=== PATIENT | male | born 1940 | race Caucasian/White ===

== ENCOUNTER 2016-10-08 06:18 | Inpatient (IN) ==
[2016-10-08] MEDS ORDERED: CARDIZEM IV ONE (06:37)
[2016-10-08] MEDS ORDERED: ASPIRIN PO STA (06:38)
[2016-10-08] MEDS ORDERED: CARDIZEM ONE (06:39)
[2016-10-08 06:50] LABS: MANUAL DIFF NEEDED? NO
[2016-10-08 06:56] LABS: BASO% 0.5 % (0.0-0.8); EOS# 0.16 X1000 (0.0-0.7); HEMATOCRIT 43.7 % (42.0-52.0); HEMOGLOBIN 15.4 g/dL (14.0-18.0); IMM GRAN# 0.07 X1000 (0.0-0.04); IMM GRAN% 0.9 % (0.0-0.5); LYMPH# 1.75 X1000 (1.2-3.4); LYMPH% 21.4 % (20.5-51.1); MCH 31.3 PG (27-31); MCHC 35.2 g/dL (33-37); MCV 88.8 FL (81-99); MONO# 0.35 X1000 (0.11-0.59); MONO% 4.3 % (1.7-9.3); MPV 10.1 FL (7.4-10.4); NEUT% 70.9 % (42.2-75.2); PLT 184 X1000 (130-400); RBC 4.92 XMIL (4.7-6.1)
[2016-10-08 07:18] LABS: INR 1.03; PROTIME 10.5 Seconds (9.2-11.7)
[2016-10-08 07:21] LABS: AGAP 16; ALKALINE PHOSPHATASE 59 U/L (32-122); BUN 21 mg/dL (8-22); CALCIUM 9.6 mg/dL (8.8-10.2); CHLORIDE 104 mmol/L (98-107); COSMO 289; GOT 19 U/L (10-34); GPT 18 U/L (10-44); POTASSIUM 3.8 mmol/L (3.5-5.1); SODIUM 142 mmol/L (136-145); TCO2 22 mmol/L (25-35); TOTAL BILIRUBIN 0.67 mg/dL (0.20-1.00); TOTAL PROTEIN 7.1 g/dL (6.3-8.3)
[2016-10-08] MEDS: CARDIZEM 100 MG/NS 100 ML IV SCH ×3 (07:21→18:08)
[2016-10-08 07:24] LABS: CK PROFILE 218 U/L (24-204)
[2016-10-08 07:50] LABS: CK INDEX 2.5 (0.0-2.5); CK-MB 5.51 ng/mL (0.0-5.0)
--- NOTE | 2016-10-08 08:33 | Diag Imaging Result Document ---
PROCEDURE NAME: HEAD/C-SPINE W/O CONTRAST - 10/08/2016 CT HEAD WITHOUT CONTRAST: A dose-reduction protocol was used. COMPARISON: No comparison exam. FINDINGS: There is no evidence of intracranial hemorrhage, mass effect, midline shift, or hydrocephalus. There is no evidence of infarct, although acute infarcts may not be immediately visible. There is no skull fracture. There is paranasal sinus disease noted on the left and the left maxillary sinus is noted to be smaller than the right. IMPRESSION: 1. No evidence of intracranial injury. 2. Paranasal sinus disease noted on the left. CT CERVICAL SPINE WITHOUT CONTRAST: Axial and reformatted sagittal and coronal images are obtained. A dose-reduction protocol was used. COMPARISON: No comparison exam. FINDINGS: The bones appear osteopenic. There are substantial degenerative changes at the atlantoaxial articulation. There is substantial multilevel degenerative disk and degenerative facet disease. There are ligamentum flavum calcifications noted at T1. There is no fracture identified. There is no subluxation seen. There is no precervical soft tissue swelling. There are atherosclerotic calcifications noted at the bilateral carotid bulb regions. IMPRESSION: 1. Apparent osteopenia. Substantial multilevel degenerative disease. 2. No evidence of fracture or subluxation.
[2016-10-08] MEDS ORDERED: NS 500 ML ONE (09:25)
[2016-10-08] MEDS ORDERED: NS 500 ML IV ONE (09:30)
--- NOTE | 2016-10-08 09:38 | ED EKG INTERP ---
EKG Interpretation - EKG Time of EKG reading by physician:: 06:29 EKG Read and Signed by:: Becca Haywood EKG Interpretation (*Must complete 3 of following elements*): Abnormal Rate: 135 Rhythm: atrial flutter with 2:1 AV conduction Attestation - Scribe Verification/Attestation Scribe:: Felicity Tovar Acting as Scribe for:: Becca Haywood Scribe documention review:: This chart was documented by a scribe and accurately reflects the service the provider performed and the decisions made by the provider.
--- NOTE | 2016-10-08 09:39 | Diag Imaging Result Document ---
PROCEDURE NAME: ANGIOGRAM/PULMONARY ARTERIES - 10/08/2016 CT ANGIOGRAM OF PULMONARY ARTERIES WITH CONTRAST: Exam performed with intravenous contrast. Axial and reformatted coronal images are obtained. A dose-reduction protocol was used. COMPARISON: No comparison exam. FINDINGS: There are no filling defects identified in the pulmonary arteries. There is no indication of aortic dissection. The ascending aorta is mildly ectatic up to 4 cm. The descending aorta is borderline ectatic up to 3 cm. There is mild dependent atelectasis. There is no consolidation, pleural effusion, or pneumothorax identified. IMPRESSION: 1. No evidence of pulmonary embolism. 2. Mild ectasia of the thoracic aorta. No evidence of aortic dissection. 3. No pneumonia. 4. No pneumothorax.
--- NOTE | 2016-10-08 09:41 | PROVIDER DOCUMENTATION ---
HPI-Syncope/Dizziness - General Chief Complaint: Syncope Stated Complaint: syncope Time Seen by Provider: 10/08/16 06:37 Source: patient Allergies/Adverse Reactions: Patient Allergies Allergy/AdvReac Type Severity Reaction Status Date / Time No Known Allergies Allergy Verified 10/08/16 06:37 Home Medications: Home Medication List Medication Instructions Recorded Confirmed Last Taken Type Doxycycline 100 mg PO BID 10/08/16 10/08/16 10/07/16 19:00 History Tamsulosin HCl 0.4 mg PO DAILY 10/08/16 10/08/16 10/07/16 07:00 History - History of Present Illness-Syncope/Dizzy Nature of Presenting Problem: Pt is a 76 yom who came to the ED with a cc of a syncopal episode this morning. Pt reports he was in the kitchen when he started feeling light headed, his heart was racing, and he got a headache, then he fell and hit the top of his head. Pt reports he was feeling fatigue before and after the syncopal episode. Pt reports he at his PCP for sinusitis and he was given a CT and MRI. Onset/Duration: reports: this morning Timing: reports: still present Position/Activity at time of episode: reports: standing Symptoms prior to episode: reports: headache, lightheaded, racing heart Context: reports: collapsed, felt faint Loss of Consciousness: no loss of consciousness Location of injury. (If syncope resulted in an injury.): reports: head (right side of the scalp) Current Symptoms: reports: lightheaded Recently Seen Here or By Another Healthcare Provider: No - Dizziness Severity in ED: reports: mild Dizziness Related Current/Associated Symptoms: reports: dizzy, headache, lightheaded, syncope Review of Systems - Adult - REVIEW OF SYSTEMS - ADULT Constitutional: denies: chills, fever Eyes: reports: no symptoms reported Ears, Nose, Mouth & Throat: reports: no symptoms reported Cardiovascular: denies: chest pain, heart murmur Respiratory: denies: cough, pleurisy Gastrointestinal: reports: no symptoms reported Genitourinary: reports: no symptoms reported Musculoskeletal: reports: no symptoms reported Integumentary: reports: no symptoms reported Neurological: reports: dizziness/vertigo, syncope. denies: loss of balance, paresthesia Psychiatric: reports: no symptoms reported Endocrine: reports: no symptoms reported Hematologic/Lymphatic: reports: no symptoms reported Allergic/Immunologic: reports: no symptoms reported All Other Systems: Reviewed and Negative Past History - Adult - PAST MEDICAL HISTORY-ADULT Review of Records: reports: Old Records Reviewed, Nursing Assessment Review Major Childhood Illnesses: reports: denies history Cardiovascular: reports: denies history Respiratory: reports: denies history Gastrointestinal: reports: denies history Obstetrical/Gynecological: reports: denies history Genitourinary: reports: denies history Musculoskeletal: reports: denies history Neurological: reports: denies history Endocrine/Immune: reports: denies history Other Conditions: reports: denies history - PRIOR SURGERIES/PROCEDURES Surgical/Procedure History: reports: joint replacement (knee ) - FAMILY HISTORY Family History: reviewed, not pertinent Physical Exam-General - PHYSICAL EXAM-ADULT Initial Vital Signs Reviewed: Yes - CONSTITUTIONAL General Appearance: alert, no apparent distress - HEAD, EARS, NOSE, MOUTH & THROAT HENMT: normocephalic/atraumatic, other (nasal congestion; superfical abrasion tot he right side of his scalp) - NECK Neck: non-tender - RESPIRATORY Respiratory: chest non-tender, lungs clear, normal breath sounds, no pleuratic chest pain, no respiratory distress, no accessory muscle use - CARDIOVASCULAR Cardiovascular: regular rate, rhythm, tachycardia - GASTROINTESTINAL (ABDOMEN) Abdominal Exam: non tender, soft - MUSCULOSKELETAL Back Exam: normal inspection, no CVA tenderness Extremity: normal range of motion, non-tender - SKIN Integumentary: normal color - NEUROLOGIC Neurologic: grossly normal - PSYCHIATRIC Psych/Mental Status: normal mood/affect, normal thought content, normal thought process, oriented x 3 Progress - PLAN OF CARE/RESULTS Progress/Plan/Lab Results: Vital Signs - 24 hr 10/08/16 10/08/16 10/08/16 06:32 08:08 08:42 Temperature 97.5 F L Pulse Rate 133 H 137 H 132 H Respiratory 18 15 Rate Blood Pressure 161/94 122/88 112/78 O2 Sat by Pulse 96 96 Oximetry 10/08/16 09:17 Temperature Pulse Rate 132 H Respiratory 14 Rate Blood Pressure 106/81 O2 Sat by Pulse 95 Oximetry Orders Category Date Time Status Cardiac Monitoring DIRECTED Care 10/08/16 06:38 Active Saline Loc NOW Care 10/08/16 06:38 Active ANGIOGRAM/PULMONARY ARTERIES [CT] Stat Exams 10/08/16 08:14 Taken CHEST-PORTABLE [RAD] Stat Exams 10/08/16 06:38 Taken HEAD/C-SPINE W/O CONTRAST [CT] Stat Exams 10/08/16 07:00 Completed CBC WITH ELECTRONIC DIFF [HEME] Stat Lab 10/08/16 06:28 Completed CK PROFILE [SP CHEM] Stat Lab 10/08/16 06:28 Completed COMPREHENSIVE METABOLIC PANEL [CHEM] Stat Lab 10/08/16 06:28 Completed D-DIMER [CHEM] Stat Lab 10/08/16 06:28 Completed MAGNESIUM [CHEM] Stat Lab 10/08/16 06:28 Completed PRO B-NATRIURETIC PEPTIDE Stat Lab 10/08/16 06:28 Completed PROTIME WITH INR [COAG] Stat Lab 10/08/16 06:28 Completed PTT [COAG] Stat Lab 10/08/16 06:28 Completed TROPONIN T Stat Lab 10/08/16 06:28 Completed 0.9% Sodium Chloride Inj [Ns] 500 ml Med 10/08/16 09:25 Discontinued .ROUTE As Directed 0.9% Sodium Chloride Inj [Ns] 500 ml Med 10/08/16 09:30 Discontinued IV Wide Open Aspirin Med 10/08/16 06:38 Discontinued 325 mg PO STAT STA Diltiazem 100 mg/Ns [Cardizem 100 mg/Ns] 100 ml Med 10/08/16 07:00 Active IV As Directed Diltiazem [Cardizem] Med 10/08/16 06:37 Discontinued 10 mg IV NOW ONE Diltiazem [Cardizem] Med 10/08/16 06:39 Discontinued 25 mg .ROUTE .STK-MED ONE EKG [EKG] Stat Ther 10/08/16 06:19 Ordered Laboratory Tests 10/08/16 10/08/16 10/08/16 06:28 06:28 06:28 WBC 8.18 RBC 4.92 Hgb 15.4 Hct 43.7 MCV 88.8 MCH 31.3 H MCHC 35.2 RDW Std Deviation 12.5 Plt Count 184 MPV 10.1 Immature Gran % (Auto) 0.9 H Neut % (Auto) 70.9 Lymph % (Auto) 21.4 [place] % (Auto) 4.3 Eos % (Auto) 2.0 Baso % (Auto) 0.5 Immature Gran # (Auto) 0.07 H Neut # (Auto) 5.81 Lymph # (Auto) 1.75 [place]ble # (Auto) 0.35 Eos # (Auto) 0.16 Baso # (Auto) 0.04 PT INR PTT (Actin FS) D-Dimer 0.83 H Sodium 142 Potassium 3.8 Chloride 104 Carbon Dioxide 22 L Anion Gap 16 BUN 21 Creatinine 0.9 Estimated GFR/1.73 m2 > 60 BUN/Creatinine Ratio 23 Glucose 152 H Calculated Osmolality 289 Calcium 9.6 Magnesium 2.0 Total Bilirubin 0.67 AST 19 ALT 18 Alkaline Phosphatase 59 Creatine Kinase 218 H Creatine Kinase Index 2.5 CK-MB (CK-2) 5.51 H Troponin T [id number] Pept Total Protein 7.1 Albumin 4.0 Globulin 3.1 Albumin/Globulin Ratio 1.3 10/08/16 10/08/16 10/08/16 06:28 06:28 06:28 WBC RBC Hgb Hct MCV MCH MCHC RDW Std Deviation Plt Count MPV Immature Gran % (Auto) Neut % (Auto) Lymph % (Auto) [place]imble % (Auto) Eos % (Auto) Baso % (Auto) Immature Gran # (Auto) Neut # (Auto) Lymph # (Auto) [place]imble # (Auto) Eos # (Auto) Baso # (Auto) PT 10.5 INR 1.03 PTT (Actin FS) 25.0 D-Dimer Sodium Potassium Chloride Carbon Dioxide Anion Gap BUN Creatinine Estimated GFR/1.73 m2 BUN/Creatinine Ratio Glucose Calculated Osmolality Calcium Magnesium Total Bilirubin AST ALT Alkaline Phosphatase Creatine Kinase Creatine Kinase Index CK-MB (CK-2) Troponin T < 0.010 [id number] Pept 235 H Total Protein Albumin Globulin Albumin/Globulin Ratio - REASSESSMENT Reassessment #1 Time Reassessed: 09:41 (Dr. Haywood went to discuss the progess with the pt and the family. Pt wants to be transfered to [facility]. Dr. Haywood contacted [facility], they reported there was no open beds.) Status: unchanged Reassessment #2 Time Reassessed: 10:01 (Pt was given a cortisol drip which did not work ) Status: unchanged - CT/MRI 1 CT Study: Cervical Spine, Head CT Results: negative 2 CT Study: Angiogram (Pulmonary arteries: negative) - CONSULTS/PCP/HOSPITALIST Notification #1 *Consult/PCP/Hospitalist*: Dr. Hernandez Time Discussed: 09:50 (Dr. Haywood spoke with Dr. Hernandez who is accepting the pt ) Consult Disposition: Admit Departure - Departure Time of Disposition Order: 10:05 DIAGNOSIS: Syncope Qualifiers: Syncope type: unspecified Qualified Code(s): R55 - Syncope and collapse Atrial flutter Qualifiers: Atrial flutter type: atypical Qualified Code(s): I48.4 - Atypical atrial flutter Disposition: ADMITTED INPATIENT 09 Certified Medical Emergency: Emergent Condition: Fair Additional Instructions: ED Follow Up Instructions: You have been treated by a care provider in the Emergency Department. These instructions are being provided to you so you can have an understanding of how to care for yourself upon discharge. Upon discharge from the Emergency Department, you are responsible for making arrangements for follow-up care by a physician of your choice. Take all prescribed medications as directed. Return to the Emergency Department immediately for any new or worsening symptoms. You may call the Physician Referral phone number at [phone] to obtain a list of Physicians who are taking new patients. - Critical Care Note Total Time (mins): 50 Critical Care Statement: This patient required my direct personal management to treat or rule out processes, the absence of which, could potentiallly result in sudden, clinically significant life or limb threatening deterioration. Attestation - Scribe Verification/Attestation Scribe:: Felicity Tovar Acting as Scribe for:: Becca Haywood Scribe documention review:: This chart was documented by a scribe and accurately reflects the service the provider performed and the decisions made by the provider.
[2016-10-08] MEDS ORDERED: NEO-SYNEPHRINE 50 MG in NS 250 ML IV SCH (11:00)
[2016-10-08 12:41] LABS: HEMOGLOBIN A1C 5.3 % (4.8-6.0)
[2016-10-08] MEDS ORDERED: NS 1,000 ML IV SCH (12:47)
[2016-10-08] MEDS ORDERED: LOVENOX SUBQ SCH (12:47)
--- NOTE | 2016-10-08 13:35 | CONSULTATION ---
DATE OF CONSULTATION: 10/08/2016 INDICATION: New onset atrial flutter. HISTORY OF PRESENT ILLNESS: Mr. Silva is a 76-year-old white male with no past medical history who presented for evaluation of heart racing and lightheadedness and a possible syncopal spell occurring early this morning. He went to bed in his usual state of health and woke up a few times to use the restroom. On the 1st occasion he felt somewhat lightheaded and had some heart racing but was able to make it back to the bedroom. The 3rd time he woke up, he got very lightheaded and may have actually had an acute syncopal spell for just a few seconds. He did not have any injury. He continued to have episodic heart racing. He was evaluated in the ER and was found to have new onset atrial flutter. PAST MEDICAL HISTORY: None. SOCIAL HISTORY: He is . No tobacco use. FAMILY HISTORY: Hypertension. REVIEW OF SYSTEMS: A 10 system review of systems is negative except for those mentioned in HPI. PHYSICAL EXAMINATION: He is afebrile. Heart rates presently during my evaluation were in 140s. His blood pressure is 103/82.General: He is in no acute distress. HEENT: Oropharynx is moist. He has normal dentition. His eye examination shows pink conjunctivae, white sclerae. Neck: Examination shows no obvious thyromegaly or thyroid tenderness. Cardiovascular: He is in an irregularly irregular tachycardic rhythm. No obvious murmurs. No S3. No lower extremity edema. No carotid bruits. Chest: Exam is clear bilaterally. He has no increased work of breathing. Abdomen: Soft, nontender, nondistended. No obvious organomegaly. Skin Exam: Warm and dry throughout without any rashes. Neurological: Moving all extremities well. Cranial nerves 2 through 12 are intact without any sensation deficits. Psychiatric: Alert, oriented, pleasant. He has normal mood and affect. PERTINENT DATA: His EKG on presentation shows what appears to be atrial flutter 2-1 conduction. Pulmonary arteriogram shows no evidence of embolism, mild ectasia, no pneumonia and no pneumothorax. Head CT shows no evidence of injury, apparent osteopenia, degenerative disease noted in the neck. No apparent fracture. Laboratory data shows a white count 8.1, hematocrit 43, platelet count is 184,000. His INR is 1.02. D-dimer 0.8. Sodium 142, potassium 3.8, his BUN is 21 creatinine 0.9. He has not had a TSH. His cardiac enzymes are negative, his proBNP was 235. ASSESSMENT: New onset atrial flutter. PLAN: We will plan on continuing his diltiazem. I will discontinue his Lovenox and place him on Eliquis 5 mg b.i.d. We will tentatively plan for BESSIE cardioversion on Monday if the patient continues to be in atrial flutter.
--- NOTE | 2016-10-08 15:14 | Diag Imaging Result Document ---
PROCEDURE NAME: CHEST-PORTABLE - 10/08/2016 PORTABLE CHEST: COMPARISON: No comparison exam. FINDINGS: Heart size appears mildly enlarged. The lungs appear clear. There is no pleural effusion or pneumothorax identified. IMPRESSION: Mild cardiomegaly. No other evidence of acute disease.
--- NOTE | 2016-10-08 15:43 | HISTORY AND PHYSICAL ---
CHIEF COMPLAINT: Palpitations and syncope. PRIMARY CARE PHYSICIAN: Dr. Kermit Stover. HISTORY OF PRESENT ILLNESS: Mr. Silva is a pleasant 76-year-old, male, who has had a distant history of lower extremity DVT, otherwise no current medical problems, who presents with acute onset of palpitations followed by syncope. The patient went to bed last night in his normal state of health, around 2:30 this morning he woke up dizzy with palpitations. He went back to bed and awoke again at 5 a.m. and was walking to the kitchen. He felt weak and still had palpitations. At that point, he had a witnessed syncopal episode by his . It only lasted a few seconds. The patient came right back to she immediately called 911. The patient has recently been on doxycycline and Flomax for sinusitis and urinary tract infection. He denies any overt chest pain. No shortness of breath. No belly pain, nausea, vomiting, diarrhea, lower extremity edema, orthopnea, PND, fevers or chills. He is able to walk up a few flights of steps without any issues. When he came to the ER his EKG was noted to be A flutter at a rate of 140 beats per minute. Laboratory data is largely unremarkable. His initial set of CK and CK-MBs were slightly elevated but troponins remain negative. CT of the head, C-spine and pulmonary arteries did not show anything acute. He remains in atrial flutter despite Cardizem bolus and drip, which they are currently titrating. We are now going to admit him for further treatment and evaluation. PAST MEDICAL HISTORY: 1. Recent history of sinusitis and UTI on antibiotics and Flomax. 2. Remote history of left lower extremity DVT. 3. Varicose veins. SURGICAL HISTORY: Bilateral knee arthroplasty, bilateral cataract removal with lens implantation, vein stripping of the left leg. SOCIAL HISTORY: There is no alcohol or tobacco or drug use. Patient is . His at the bedside. He is retired from [employer]. He has 3 children. REVIEW OF SYSTEMS: Fourteen-point review of systems obtained by me negative with the exception of the HPI. FAMILY HISTORY: Noncontributory. HOME MEDICATIONS: Flomax 0.4 mg daily, doxycycline as directed, fish oil. ALLERGIES: No known allergies. PHYSICAL EXAMINATION: VITAL SIGNS: Blood pressure is 108/80, heart rate 138, respiratory rate 14, O2 saturation 95% on 2 L. Temperature is 97.5 degrees. GENERAL: Well developed, well nourished male, lying in hospital bed. No acute distress. NEUROLOGIC: The patient is awake, alert, oriented. Follows commands without focal deficits. HEENT: Head is atraumatic and normocephalic. His pupils are equal, round, reactive to light. Oral mucosa is moist. Trachea is midline. No JVD or carotid bruits. CHEST: Clear auscultation bilaterally. CV: Tachy and regular. S1, S2 is noted. No murmurs, gallops, clicks, rubs. GI: Soft, nondistended, nontender. Bowel sounds positive. EXTREMITIES: Without edema, clubbing or cyanosis. Pulses are palpable bilaterally. DIAGNOSTIC DATA: Head and cervical spine CT show no evidence of intracranial injury, paranasal sinus disease on the left, osteopenia, substantial multilevel degenerative disk disease. No evidence of fracture or subluxation of the C-spine. Pulmonary arteriogram shows mild ectasia of the thoracic aorta, no dissection noted. No other acute findings. No PE. EKG atrial flutter, 2:1 AV block at a rate of 140 beats per minute. Laboratory data: WBC 8.18, hemoglobin 15.4, hematocrit 43.7, platelet count 184,000. PT 10.5, INR 1.03. D-dimer 0.3. Sodium 142, potassium 3.9, chloride 104, CO2 22, anion gap 16. BUN 21, creatinine 0.9, glucose 152, calcium 9.6. CK 218, CK-MB 5.51. Troponin negative. ProBNP 235. Albumin is 4. ASSESSMENT AND PLAN: 1. Palpitations/atrial flutter: The patient is currently on a Cardizem drip. We will continue to titrate that and continue IV fluids. We will check thyroid function, other electrolytes and consult with Cardiology. He does not have an elevated [id number] score, so aspirin is likely to be okay for this patient but we will defer to Cardiology. 2. Syncope: Likely cardiac related. Head CT does not show anything acute. We are going to check carotids and echocardiogram. Rule out myocardial infarction. Check thyroid function and B12 and folate. 3. We are going to add omeprazole for GI prophylaxis and Lovenox for DVT prophylaxis. Further recommendations to follow. Dictated by SALMA Francis for Med Hernandez MD
[2016-10-08] MEDS: ELIQUIS PO SCH (20:02)
[2016-10-09] MEDS: CARDIZEM 100 MG/NS 100 ML IV SCH ×4 (00:09→21:23)
[2016-10-09 06:19] LABS: HEMATOCRIT 46.4 % (42.0-52.0); HEMOGLOBIN 15.8 g/dL (14.0-18.0); MCHC 34.1 g/dL (33-37); MCV 91.2 FL (81-99); RBC 5.09 XMIL (4.7-6.1)
[2016-10-09 06:22] LABS: AGAP 13; BUN 21 mg/dL (8-22); CALCIUM 8.8 mg/dL (8.8-10.2); CHLORIDE 104 mmol/L (98-107); COSMO 288; POTASSIUM 3.7 mmol/L (3.5-5.1); SODIUM 143 mmol/L (136-145); TCO2 26 mmol/L (25-35)
[2016-10-09] MEDS: PRILOSEC PO SCH (06:33)
[2016-10-09] MEDS: ELIQUIS PO SCH ×2 (08:52→21:22)
--- NOTE | 2016-10-09 11:53 | PROGRESS NOTE ---
DATE: 10/09/2016 SUBJECTIVE: Mr. Lobo reports he is doing well with the exception of some lightheaded spells whenever he gets up. This has been associated with elevated heart rates in the 130s and 140s. OBJECTIVE: Vital signs: He is afebrile, heart rate of 80, blood pressure 124/72. General: No acute distress. Cardiovascular: He is in a regular rate and rhythm. His current telemetry shows 4:1 atrial flutter. Rates in the 70s to 80s. No lower extremity edema. Chest: Clear bilaterally. No increased work of breathing. Abdomen: Soft, nontender, nondistended. No obvious organomegaly. PERTINENT DATA: White count 11.3, hematocrit 46, platelet count 101,000. Sodium 143, potassium 3.7, his BUN is 21, creatinine is 1.1. TSH was normal. ASSESSMENT: New onset atrial flutter. PLAN: His CHADS-VASc score is 1 for age. He is already on Eliquis in preparation for the procedure tomorrow. He is on a diltiazem infusion which is controlling his rate at rest. I would recommend BESSIE cardioversion. Risks, benefits, and alternatives have been explained. He will likely need a calcium channel sue or beta-sue at home and I would likely use flecainide. He would be a good candidate for an atrial flutter ablation and will likely refer him over to the EP doctors at the time of discharge. Likely he can be discharged tomorrow after the procedure.
--- NOTE | 2016-10-09 15:37 | ECHO REPORT ---
ORDER DATE: 10/08/2016 INDICATION: New onset atrial flutter. FINDINGS: 1. Right atrium does appear to be enlarged. From four-chamber apical views, it does not appear particularly enlarged, but on some other apical views it does. Suggestion is mild enlargement. 2. Trace tricuspid regurgitation. RV systolic pressure 31. 3. Right ventricle appears mildly enlarged with normal RV systolic function. 4. Trace pulmonic insufficiency. 5. Normal left atrial size at 3.5 cm. 6. No mitral valve prolapse. Trace mitral regurgitation. 7. Normal LV size, end-diastolic dimension of 5.6. Normal wall thicknesses with a posterior and interventricular septal wall thickness of 1.1 cm each. Normal LV systolic function. Estimated EF is 65% with normal wall motion. 8. The aortic valve opens well and appears trileaflet. No evidence of stenosis. There is mild insufficiency. 9. The aorta does appear to be enlarged at the root with a dimension of 4.2 cm in the ascending thoracic aorta. 10. No pericardial effusion seen. 11. Patient appears to be in atrial flutter.
--- NOTE | 2016-10-09 18:09 | PROGRESS NOTE ---
DATE: 10/09/2016 SUBJECTIVE: Today, Mr. Silva referred to be doing fine. Denies any chest pain or shortness of breath. According to his attending nurse, his heart rate is usually normal when he is in bed, but it jumps up into the 140s when he exerts himself. OBJECTIVE: Vital Signs: Blood pressure is now 127/80, pulse is 73 at rest, temperature is 97.6 degrees, respiration is 18. Patient is saturating 95%. General: Mr. Silva an a 76-year-old male. He is in bed, no distress. HEENT: Mucosa is pink and moist. Anicteric and acyanotic. Neck: Supple. Chest: Clear. Cardiovascular: Regular rate and rhythm. No murmurs, no rubs. No gallops. Abdomen: Soft, nontender. Extremities: No pedal edema. There is an old surgical scar over the right knee consistent with an orthopedic surgery. DIAGNOSTICS: A CTA of the lungs was done which showed no evidence of pulmonary embolism. No pneumonia. CURRENT MEDICATIONS: 1. Apixaban 5 mg b.i.d. 2. Diltiazem drip. ASSESSMENT: 1. Syncope likely due to tachyarrhythmias. 2. New onset atrial flutter. 3. Obesity with body mass index of 21.7. 4. Thrombocytopenia of unclear etiology. I will repeat this to follow it up. plan: will continue with the Cardizem drip and Eliquis anticoagulation. Patient for Electrical cardioversion tomorrow. possible discharge after procedure. MTDD
[2016-10-10] MEDS: CARDIZEM 100 MG/NS 100 ML IV SCH ×2 (03:22→09:25)
[2016-10-10 05:31] LABS: MANUAL DIFF NEEDED? NO
[2016-10-10 06:00] LABS: BASO% 0.2 % (0.0-0.8); EOS# 0.12 X1000 (0.0-0.7); EOS% 1.3 % (0.0-10.0); HEMATOCRIT 42.8 % (42.0-52.0); HEMOGLOBIN 14.9 g/dL (14.0-18.0); IMM GRAN# 0.04 X1000 (0.0-0.04); IMM GRAN% 0.4 % (0.0-0.5); LYMPH# 2.26 X1000 (1.2-3.4); LYMPH% 23.7 % (20.5-51.1); MCH 31.1 PG (27-31); MCHC 34.8 g/dL (33-37); MCV 89.4 FL (81-99); MONO# 0.57 X1000 (0.11-0.59); MPV 10.9 FL (7.4-10.4); NEUT% 68.4 % (42.2-75.2); PLT 141 X1000 (130-400); RBC 4.79 XMIL (4.7-6.1)
[2016-10-10] MEDS: PRILOSEC PO SCH (06:12)
[2016-10-10 06:31] LABS: AGAP 15; BUN 20 mg/dL (8-22); CALCIUM 8.5 mg/dL (8.8-10.2); CHLORIDE 105 mmol/L (98-107); COSMO 283; MAGNESIUM 2.1 mg/dL (1.5-2.7); POTASSIUM 3.9 mmol/L (3.5-5.1); SODIUM 140 mmol/L (136-145); TCO2 20 mmol/L (25-35)
[2016-10-10] MEDS: ELIQUIS PO SCH (08:45)
[2016-10-10] MEDS ORDERED: CIPRO PO SCH (09:15)
[2016-10-10] MEDS ORDERED: FLOMAX PO SCH (09:15)
--- NOTE | 2016-10-10 10:00 | PROGRESS NOTE ---
DATE: 10/10/2016 SUBJECTIVE: This is a 76-year-old who came in with palpitations and syncope. He had a distant history of lower extremity DVT, otherwise no current medical problems. He presented with acute onset of palpitation, followed by syncope. The patient went to bed the night before, on 10/07/2016, and in his normal state of health. Around 2:30 in the morning, on 10/08/2016, he woke up dizzy with palpitations. He went back to bed and woke up at 5 a.m., walked to the kitchen, felt weak, and still had palpitations. At that he had a witnessed syncopal episode according to his . It only lasted a few seconds. The patient came right back and immediately called 911. The patient has recently been on doxycycline and Flomax for sinusitis and a urinary tract infection. He denies any overt chest pain, shortness of breath belly pain, nausea or vomiting. He states that the palpitations are better, and the sinus congestion is better. He is concerned that he is having burning when he passes water and is getting his urinary tract infection back again. PAST MEDICAL AND SURGICAL HISTORY: To review again, UTI, recently on antibiotics; lower extremity DVT, varicose veins. He has had bilateral knee arthroplasty, bilateral cataract removal and lens implantation, vein stripping of the left leg. PHYSICAL EXAMINATION: Vital Signs: On exam today, temperature 98.5 degrees, pulse 80, respirations 18, blood pressure 121/74. HEENT and Neck: Pupils are equal and round. CVP less than 6 cm. Lungs: Clear in all lung ewing. Cardiovascular: Regular rhythm and rate. Note that the cafeteria monitor shows he is still in flutter with a 3:1 and 2:1 conduction. Heart rates are in the 70s and 80s. ASSESSMENT AND PLAN: 1. Syncope, likely due to tachyarrhythmia. 2. New-onset atrial flutter. He is still in atrial flutter. Cardiology following. Consider cardioversion. 3. Obesity with body mass of 21.7. 4. Thrombocytopenia, unclear of etiology. We will follow up. 5. Burning with urination. This may be a prostatitis or urinary tract infection with underlying benign prostatic hypertrophy. Of note, he is on a diltiazem drip. He is on apixaban 5 mg b.i.d. Review of his orders, he had a diltiazem drip, Prilosec; apixaban, which is Eliquis, 5 mg b.i.d. We will put him on Levaquin for urinary tract. We will also put him back on Flomax and follow. As stated, Cardiology is following; Dr. Gabriele Xiong is seeing him. We will plan for BESSIE conversion, I think possibly today. It looks like it was the plan. Echocardiogram was done on 10/08/2016 with normal left ventricular size and systolic dimension 5.6. Normal left ventricular systolic function. Estimated ejection fraction 65%. The area appears to be mildly enlarged with normal right ventricular systolic function. Right atrium does appear to be enlarged in a 4-chamber view.
--- NOTE | 2016-10-10 10:43 | EKG Report ---
Test Performed on : 10/08/2016 06:29:15 AM Test Reason : syncope Blood Pressure : / mmHG Vent. Rate : 135 BPM Atrial Rate : 270 BPM P-R Int : 000 ms QRS Dur : 096 ms QT Int : 290 ms P-R-T Axes : 261 075 -39 degrees QTc Int : 435 ms Atrial flutter. with 2:1 AV conduction. Cannot rule out Inferior infarct , age undetermined Abnormal ECG No previous ECGs available Unconfirmed Result
[2016-10-10 11:11] LABS: URINE SOURCE CLEAN CATCH
[2016-10-10 11:21] LABS: BILIRUBIN URINE NEGATIVE (NEGATIVE); BLOOD URINE MODERATE (NEGATIVE); COLOR YELLOW; GLUCOSE URINE NEGATIVE (NEGATIVE); LEUKOCYTES URINE LARGE (NEGATIVE); NITRITE URINE NEGATIVE (NEGATIVE); PROTEIN URINE 70 mg/dL (NEGATIVE); SP GRAVITY URINE 1.019; TURBIDITY URINE HAZY (CLEAR); UROBILINOGEN URINE NORMAL (NORMAL)
[2016-10-10 11:22] LABS: URINE MICRO REVIEW NEEDED? YES
[2016-10-10 11:26] LABS: UR EPITHELIAL CELLS <10 /HPF (<10); URINE BACTERIA 2+ /HPF; URINE CULTURE NEEDED? YES; URINE RBC TNTC /HPF (<10); URINE WBC TNTC /HPF (<10)
[2016-10-10 11:42] LABS: URINE CASTS NONE SEEN; URINE CRYSTALS NONE SEEN; URINE SMALL ROUND CELLS NONE SEEN
[2016-10-10] MEDS ORDERED: XYLOCAINE 4% TOPICAL SOLUTION ONE (12:03)
[2016-10-10] MEDS ORDERED: HURRICAINE SPRAY (DOSE) ONE (12:03)
[2016-10-10] MEDS ORDERED: SODIUM CHLORIDE 0.9% 10 ML ONE (12:03)
[2016-10-10] MEDS ORDERED: XYLOCAINE 2% VISCOUS ONE (12:03)
[2016-10-10] MEDS ORDERED: CLAVE TWINSITE 32 IN 11959 ONE (12:08)
[2016-10-10] MEDS ORDERED: CLAVE ANES SET 100 IN 11965 ONE (12:08)
[2016-10-10] MEDS ORDERED: NS 1,000 ML ONE (12:08)
--- NOTE | 2016-10-10 12:54 | ECHO REPORT ---
ORDER DATE: 10/10/2016 PHYSICIAN: Dr. Davies REQUESTING PHYSICIAN: CLINICAL INDICATIONS: Persistent atrial flutter, unknown duration. Rule out thrombus. PROCEDURE: Transesophageal echocardiography. DESCRIPTION: The patient was brought to the cardiac dental laboratory manager. He was given intravenous Versed under the Anesthesia Services. His throat was anesthetized with Cetacaine and Hurricaine. The esophagus was intubated without difficulty. Multiple views of the cardiac structure were obtained. SUMMARY OF MAIN FINDINGS: The left atrium and its appendage appear to be anatomically normal. The interatrial septum is normal. The right atrium is normal. Tricuspid valve shows no significant regurgitation. Right ventricle was normal. Left ventricle has normal function. Ejection fraction is in the order of 60%. Mitral valve showed mild degree of regurgitation. The valve is anatomically normal. The aortic valve has 3 cusps, and they open normally. Color flow mapping is unremarkable. Aortic root is not dilated. The ascending thoracic aorta shows some scattered plaque. The left atrial appendage was well visualized and is free of thrombus. It has high velocities. The patient is in atrial flutter. CONCLUSIONS: This transesophageal echocardiogram shows no evidence of any thrombus. BESSIE can be performed at a low risk of thromboembolic events.
[2016-10-10] MEDS ORDERED: VERSED ONE (12:57)
[2016-10-10] MEDS ORDERED: DIPRIVAN 1% ONE (12:57)
--- NOTE | 2016-10-10 12:57 | CARDIAC CATH REPORT ---
DATE: 10/10/2016 PROCEDURE PERFORMED: Direct current cardioversion procedure. INDICATION: The patient presented with persistent atrial flutter. DESCRIPTION OF PROCEDURE: The patient was brought to the cardiac photographic laboratory technician, and he received a transesophageal echocardiogram. This showed no evidence of thrombus. The patient was cleared for cardioversion. The procedure had been discussed with him by Dr. Gabriele Xiong the day before. The pads were attached in an anterior posterior location. The patient received intravenous propofol under the Anesthesia Services. Initially we shocked him with 50 jaffe per second, a single synchronized countershock to the chest cage. This resulted in conversion into atrial fibrillation. Then after a few moments, we went ahead and shocked him a second time, this time with an energy of 150 jaffe per second, and this converted him from atrial fibrillation into sinus rhythm. The patient woke up from the effects of the anesthesia without any deficit. SUMMARY: This was a successful cardioversion from atrial flutter into atrial fibrillation and then from atrial fibrillation into sinus rhythm. RECOMMENDATIONS: The patient is to remain on anticoagulants and follow up with his primary doctor.
[2016-10-10] MEDS ORDERED: XYLOCAINE-MPF 2% ONE (13:04)
--- NOTE | 2016-10-10 14:29 | PROGRESS NOTE ---
DATE: 10/10/2016 SUBJECTIVE: Mr. Silva is currently in sinus rhythm. He has undergone his BESSIE cardioversion without difficulties. PHYSICAL EXAMINATION: Vital signs: He is afebrile. Heart rate is 77, blood pressure 119/69. General: No acute distress. Cardiovascular: He is in a regular rate and rhythm. No murmurs. No S3. No lower extremity edema. Chest: Clear bilaterally. No increased work of breathing. Abdomen: Soft, nontender, nondistended. No obvious organomegaly. Skin Exam: Warm and dry throughout. PERTINENT DATA: White count 9.5, hematocrit 42.8, platelet count 141,000. Sodium 140, potassium 3.9, BUN 20, creatinine 0.9. Magnesium level is 2.1. ASSESSMENT: New onset atrial flutter. PLAN: We will proceed with Eliquis at 5 mg twice a day. I will start flecainide [address] and place him on Toprol 25 mg daily. Will make a referral to the retail advisor in [place] for evaluation for an atrial flutter ablation. In addition, we will also make a referral for an obstructive sleep apnea evaluation from the office. At this point, he may be discharged home from our standpoint.
[2016-10-10 15:53] VITALS: BP 157/102
--- NOTE | 2016-10-10 16:17 | EKG Report ---
Test Performed on : 10/10/2016 4:07:47 PM Test Reason : post cardioversion Blood Pressure : / mmHG Vent. Rate : 076 BPM Atrial Rate : 076 BPM P-R Int : 182 ms QRS Dur : 112 ms QT Int : 404 ms P-R-T Axes : 045 074 014 degrees QTc Int : 454 ms Normal sinus rhythm. Normal ECG When compared with ECG of 08-OCT-2016 06:29, (Unconfirmed) Sinus rhythm. has replaced Atrial flutter. Vent. rate has decreased BY [address] no longer depressed in Inferior leads ST no longer depressed in Anterolateral leads T wave inversion no longer evident in Inferior leads Nonspecific T wave abnormality now evident in Anterior leads Confirmed by Diana LOMBARDO, Toño Rodriguez ([id number]) on 10/12/2016 3:22:17 PM
[2016-10-10] MEDS ORDERED: TAMBOCOR PO SCH (21:00)
[2016-10-11] MEDS ORDERED: TOPROL XL PO SCH (09:00)
--- NOTE | 2016-10-11 11:09 | DISCHARGE SUMMARY ---
ADMISSION DATE: 10/08/2016 DISCHARGE DATE: 10/10/2016 HOSPITAL COURSE: The patient is a patient of Dr. Kermit Stover, who became ill with palpitations and syncope. This is a 76-year-old, who had distant history of lower extremity DVT, otherwise no current medical problems. He presented with acute onset of palpitations followed by syncope. The patient went to bed last night. The night before admission was stable and feeling normal state of health. Around 2:30 the next morning, he woke up dizzy with palpitations, went back to bed and awoke at 5 a.m. Then, was walking to the kitchen. He felt weak and still had palpitations. At that time, he had witnessed syncopal episode by his ; it only lasted a few seconds. Patient came right back. She immediately called 911. Recently been on doxycycline and Flomax for sinusitis and urinary tract infection. Denies any overt chest pain or shortness of breath, belly pain, nausea, vomiting, diarrhea, lower extremity edema, orthopnea, PND, fever or chills. Was able to walk a few flights of steps without any issues. He came to the ER. EKG was noted to be in a flutter at a rate of 140 beats per minute. Laboratory data was largely unremarkable. His initial set of CK and CK-MB's were slightly elevated, but troponins were negative. CT of the head and C-spine and pulmonary arteries did not show anything acute. He remained in atrial flutter but, despite Cardizem bolus and drip, was admitted. Received some fluids, and he underwent transesophageal echo, cardiac catheterization, and he had electrocardioversion transesophageal echo. Unsuccessful heart catheterization; this was in the laboratory animal care veterinarian where they did transesophageal cardioversion and had successful cardioversion of atrial fib and then from atrial fib into sinus rhythm. They went from atrial flutter to atrial fib and then from atrial fib to sinus rhythm. Remains in sinus rhythm and, from a cardiology standpoint, he can go home. I did put him back on some Cipro. He is complain of a little bit of burning with urination. Suspect a little bit of prostatitis. I will give him 10 days of Cipro 500 mg twice a day. other. OTHER DISCHARGE MEDICATIONS: He will be on Eliquis or apixaban 5 mg p.o. b.i.d. He will be on Cipro 500 mg b.i.d. for 10 days, Tambocor 50 mg b.i.d., Toprol-XL 25 mg daily, omeprazole 20 mg at bedtime, and Flomax 0.4 mg daily. IMAGING DATA: He also had an echocardiogram which was done on 10/08/2016 and right atrium did appear to be a little large from four-chamber views, but did not appear particularly enlarged in some of the apical views. Trace tricuspid regurgitation. Right ventricle appears mildly enlarged. Normal RV systolic function. Trace pulmonic insufficiency. Normal left atrial size at 3.5 cm. Normal LV size and diastolic dimension 5.6 cm. Normal wall thickness and a posterior intraventricular septal wall thickness 1.1 cm each. Normal left ventricular systolic function. Estimated ejection fraction 65% with normal wall motion. Aortic valve and mitral valve unremarkable. DISPOSITION: He will discharge home. He will follow up with I believe Dr. Xiong.
--- NOTE | 2016-10-12 11:15 | Carotid Study ---
DATE: 10/08/2016 PROCEDURE: Carotid duplex imaging. REFERRING PHYSICIAN: Becca Haywood MD. INTERPRETING PHYSICIAN: Abraham Shukla MD. TECH: [place]. INDICATIONS: Syncope. OBSERVED DATA RIGHT LEFT Brachial Blood Pressure Carotid Pulse Bruits: Carotid/Sub DIAGRAM OF ULTRASOUND IMAGING R L RIGHT INT EXT INT EXT LEFT Blane (cm/s) Blane (cm/s) Subclavian 105/0 Subclavian 112/0 CCA Proximal 61/5 CCA Proximal 78/6 CCA Distal 52/8 CCA Distal 62/11 Bulb 50/9 Bulb 65/6 ICA Proximal 36/9 ICA Proximal 34/8 ICA Mid 45/9 ICA Mid 59/13 ICA Distal 46/12 ICA Distal 41/14 ECA 105/0 ECA 88/0 Vertebral 44/8 A Vertebral 42/8 A ICA/CCA Ratio 0.76 ICA/CCA Ratio 0.75 % Stenosis 0-39 % Stenosis 0-39 FINDINGS: There is no significant atherosclerotic disease in bilateral carotid artery systems with normal velocities throughout.
== END 2016-10-10 16:10 | disposition home or self-care (01) ==
LOC: ED 06:18 → EDIPHOLD 11:39 → 3S 12:33
PROVIDERS: ATTEND Emergency Medicine

== ENCOUNTER 2017-01-15 07:35 | Inpatient (IN) ==
[2017-01-15] MEDS ORDERED: ASPIRIN PO STA (08:27)
--- NOTE | 2017-01-15 08:33 | PROVIDER DOCUMENTATION ---
HPI-Syncope/Dizziness - General Chief Complaint: Near Syncope Stated Complaint: near syncope Time Seen by Provider: 01/15/17 08:00 Source: patient Allergies/Adverse Reactions: Patient Allergies Allergy/AdvReac Type Severity Reaction Status Date / Time No Known Allergies Allergy Verified 01/15/17 07:52 Home Medications: Home Medication List Medication Instructions Recorded Confirmed Last Taken Type Flecainide [Tambocor] 50 mg PO BID #60 tablet 10/10/16 01/15/17 01/15/17 07:00 Rx Metoprolol Succinate E.r. [Toprol 25 mg PO DAILY #30 tablet 10/10/16 01/15/17 07:00 Rx Xl] Apixaban [Eliquis] 5 mg PO BID 01/15/17 01/15/17 01/15/17 07:00 History - History of Present Illness-Syncope/Dizzy Nature of Presenting Problem: says got up this am, felt light headed, weak, had to lean on washing machine, then got to chair. says passed out, he denies this. When got up, sx returned, so EMS called. No CP, no SOB, no palpitations. Had similar a few mos ago, was dx with a-flutter. Ablation scheduled for end of the month If witnessed syncope, by whom?: Prior Episodes: reports: other (see above) Onset/Duration: reports: just prior to arrival Timing: reports: gone now Position/Activity at time of episode: reports: activity (walking thru house) Symptoms prior to episode: reports: none Context: reports: felt faint, almost passed out, other (see above). denies: breathing shallow, breathing stopped Location of injury. (If syncope resulted in an injury.): reports: none Current Symptoms: reports: none/feels normal Similar symptoms previously: reports: previous diagnosis, workup for same problem Recently Seen Here or By Another Healthcare Provider: No - Dizziness Dizziness Related Current/Associated Symptoms: reports: none/feels normal, other (earlier felt light-headed, weak) Modifying Factors: improves with: nothing Patient usually:: reports: walks without assistance Review of Systems - Adult - REVIEW OF SYSTEMS - ADULT Constitutional: reports: no symptoms reported Eyes: reports: no symptoms reported Ears, Nose, Mouth & Throat: reports: no symptoms reported Cardiovascular: reports: no symptoms reported Respiratory: reports: no symptoms reported Gastrointestinal: reports: no symptoms reported Genitourinary: reports: no symptoms reported Musculoskeletal: reports: no symptoms reported Integumentary: reports: no symptoms reported Neurological: reports: see HPI Psychiatric: reports: no symptoms reported Endocrine: reports: no symptoms reported Hematologic/Lymphatic: reports: no symptoms reported Allergic/Immunologic: reports: no symptoms reported Past History - Adult - PAST MEDICAL HISTORY-ADULT Review of Records: reports: Medications Reviewed Major Childhood Illnesses: reports: denies history Cardiovascular: reports: denies history Respiratory: reports: denies history Gastrointestinal: reports: denies history Obstetrical/Gynecological: reports: denies history Genitourinary: reports: denies history Musculoskeletal: reports: denies history Neurological: reports: denies history Endocrine/Immune: reports: denies history Other Conditions: reports: denies history - PRIOR SURGERIES/PROCEDURES Surgical/Procedure History: reports: joint replacement (knee ) - FAMILY HISTORY Family History: reviewed, not pertinent - SOCIAL HISTORY Smoking: denies Physical Exam-General - PHYSICAL EXAM-ADULT Initial Vital Signs Reviewed: Yes - CONSTITUTIONAL General Appearance: appears well, alert, no apparent distress - EYES Eyes: PERRL/EOMI, pink conjunctivae - HEAD, EARS, NOSE, MOUTH & THROAT HENMT: normocephalic/atraumatic, moist mucous membranes, normal ENT inspection, pharynx normal - NECK Neck: full range of motion, supple - RESPIRATORY Respiratory: lungs clear, normal breath sounds, no pleuratic chest pain, no respiratory distress, no accessory muscle use - CARDIOVASCULAR Cardiovascular: normal peripheral pulses, no edema, no murmur, tachycardia - GASTROINTESTINAL (ABDOMEN) Abdominal Exam: non tender, soft - MUSCULOSKELETAL Back Exam: normal inspection, no CVA tenderness, no vertebral tenderness Extremity: normal range of motion, non-tender, normal inspection, no pedal edema - SKIN Integumentary: normal color, normal turgor, warm/dry - NEUROLOGIC Neurologic: housekeeper supervisor II-XII nml as tested, grossly normal, no motor/sensory deficits - PSYCHIATRIC Psych/Mental Status: normal mood/affect, normal thought content, normal thought process, oriented x 3 Progress - PLAN OF CARE/RESULTS Progress/Plan/Lab Results: Vital Signs - 8 hr 01/15/17 07:47 01/15/17 08:16 01/15/17 09:02 Temperature 97.4 F L Pulse Rate 119 H 121 H 116 H Respiratory Rate 15 15 Blood Pressure 143/90 129/89 145/102 O2 Sat by Pulse Oximetry 96 96 98 01/15/17 10:21 Temperature Pulse Rate 119 H Respiratory Rate Blood Pressure 96/71 O2 Sat by Pulse Oximetry 98 Laboratory Results - last 24 hr 01/15/17 01/15/17 01/15/17 08:26 08:26 08:26 WBC 7.69 RBC 5.00 Hgb 15.7 Hct 44.1 MCV 88.2 MCH 31.4 H MCHC 35.6 RDW Std Deviation 12.8 Plt Count 161 MPV 9.7 Immature Gran % (Auto) 0.4 Neut % (Auto) 75.7 H Lymph % (Auto) 17.9 L [place] % (Auto) 3.9 Eos % (Auto) 1.6 Baso % (Auto) 0.5 Immature Gran # (Auto) 0.03 Neut # (Auto) 5.82 Lymph # (Auto) 1.38 [place] # (Auto) 0.30 Eos # (Auto) 0.12 Baso # (Auto) 0.04 PT INR PTT (Actin FS) Sodium 143 Potassium 4.0 Chloride 106 Carbon Dioxide 22 L Anion Gap 15 BUN 23 H Creatinine 1.0 Estimated GFR/1.73 m2 > 60 BUN/Creatinine Ratio 23 Glucose 118 H Calculated Osmolality 290 Calcium 9.0 Magnesium 2.1 Total Bilirubin 0.82 AST 22 ALT 16 Alkaline Phosphatase 54 Creatine Kinase 204 Troponin T Vry-[id number] Pept 199 Total Protein 6.9 Albumin 4.2 Globulin 2.7 Albumin/Globulin Ratio 1.6 01/15/17 01/15/17 08:26 08:26 WBC RBC Hgb Hct MCV MCH MCHC RDW Std Deviation Plt Count MPV Immature Gran % (Auto) Neut % (Auto) Lymph % (Auto) [place] % (Auto) Eos % (Auto) Baso % (Auto) Immature Gran # (Auto) Neut # (Auto) Lymph # (Auto) [place] # (Auto) Eos # (Auto) Baso # (Auto) PT 11.7 INR 1.11 PTT (Actin FS) 31.0 Sodium Potassium Chloride Carbon Dioxide Anion Gap BUN Creatinine Estimated GFR/1.73 m2 BUN/Creatinine Ratio Glucose Calculated Osmolality Calcium Magnesium Total Bilirubin AST ALT Alkaline Phosphatase Creatine Kinase Troponin T < 0.010 [id number] Pept Total Protein Albumin Globulin Albumin/Globulin Ratio Orders Category Date Time Status Cardiac Monitoring DIRECTED Care 01/15/17 08:27 Active Saline Loc NOW Care 01/15/17 08:27 Active CHEST-2 VIEWS [RAD] Stat Exams 01/15/17 08:27 Taken CBC WITH ELECTRONIC DIFF [HEME] Stat Lab 01/15/17 08:26 Completed CK PROFILE [SP CHEM] Stat Lab 01/15/17 08:26 Completed COMPREHENSIVE METABOLIC PANEL [CHEM] Stat Lab 01/15/17 08:26 Completed MAGNESIUM [CHEM] Stat Lab 01/15/17 08:26 Completed PRO B-NATRIURETIC PEPTIDE Stat Lab 01/15/17 08:26 Completed PROTIME WITH INR [COAG] Stat Lab 01/15/17 08:26 Completed PTT [COAG] Stat Lab 01/15/17 08:26 Completed TROPONIN T Stat Lab 01/15/17 08:26 Completed Aspirin Med 01/15/17 08:27 Discontinued 325 mg PO STAT STA Metoprolol [Lopressor] Med 01/15/17 10:47 Discontinued 5 mg IV NOW ONE EKG [EKG] Stat Ther 01/15/17 08:27 Ordered Result Diagrams: 01/15/17 08:26 01/15/17 08:26 - CONSULTS/PCP/HOSPITALIST Notification #1 *Consult/PCP/Hospitalist*: Ang Time Discussed: 10:45 Reason/Comments: Rec admit for rate control #2 Consult: Jennifer Time Discussed: 10:55 Consult Disposition: Will see in ED, Admit Departure - Departure Date of Disposition Decision: 01/15/17 Time of Disposition Decision: 10:58 DIAGNOSIS: Atrial flutter with rapid ventricular response Disposition: ADMITTED INPATIENT 09 Certified Medical Emergency: Emergent Condition: Good - Critical Care Note This patient required my direct & personal management of CC.: No
[2017-01-15 08:46] LABS: MANUAL DIFF NEEDED? NO
[2017-01-15 08:49] LABS: BASO% 0.5 % (0.0-0.8); EOS# 0.12 X1000 (0.0-0.7); EOS% 1.6 % (0.0-10.0); HEMATOCRIT 44.1 % (42.0-52.0); HEMOGLOBIN 15.7 g/dL (14.0-18.0); IMM GRAN# 0.03 X1000 (0.0-0.04); IMM GRAN% 0.4 % (0.0-0.5); LYMPH# 1.38 X1000 (1.2-3.4); LYMPH% 17.9 % (20.5-51.1); MCH 31.4 PG (27-31); MCHC 35.6 g/dL (33-37); MCV 88.2 FL (81-99); MONO% 3.9 % (1.7-9.3); MPV 9.7 FL (7.4-10.4); NEUT% 75.7 % (42.2-75.2); PLT 161 X1000 (130-400)
[2017-01-15 08:58] LABS: INR 1.11; PROTIME 11.7 Seconds (9.2-11.7)
[2017-01-15 09:16] LABS: AGAP 15; ALBUMIN 4.2 g/dL (3.5-5.0); ALKALINE PHOSPHATASE 54 U/L (32-122); BUN 23 mg/dL (8-22); CHLORIDE 106 mmol/L (98-107); CK PROFILE 204 U/L (24-204); COSMO 290; GOT 22 U/L (10-34); GPT 16 U/L (10-44); MAGNESIUM 2.1 mg/dL (1.5-2.7); SODIUM 143 mmol/L (136-145); TCO2 22 mmol/L (25-35); TOTAL BILIRUBIN 0.82 mg/dL (0.20-1.00); TOTAL PROTEIN 6.9 g/dL (6.3-8.3)
[2017-01-15] MEDS ORDERED: LOPRESSOR IV ONE (10:47)
--- NOTE | 2017-01-15 12:22 | Diag Imaging Result Doc PS360 ---
EXAM: CHEST-2 VIEWS INDICATION: CP TECHNIQUE: 3 views COMPARISON: 10/08/2016 FINDINGS: The lungs are grossly clear. There is no discrete pleural fluid collection or pneumothorax. The cardiac silhouette is borderline to mildly prominent but stable. IMPRESSION: Borderline to mildly prominent heart. No definite acute pathology by plain radiograph. Electronically signed by Mao Peterson 01/15/2017 12:19 PM
--- NOTE | 2017-01-15 13:56 | HISTORY AND PHYSICAL ---
MAP MOUNTER: Dr. Gabriele Xiong. COMMUNICATIONS AGENT: Dr. Carlin Baldwin in [place]. PCP: Dr. Kermit Stover. CHIEF COMPLAINT: Syncope. HISTORY OF PRESENT ILLNESS: Mr. Silva is a 76-year-old male with a history of paroxysmal atrial flutter 1st diagnosed 3 months ago. At that time he came to the ER with complaints of palpitations and near-syncope. He was found to be in atrial flutter and was ultimately cardioverted by Cardiology. He had a very thorough workup at that time which did not show any acute findings on his head CT, carotid ultrasound or echocardiogram. He has since seen Dr. Ho in the office and scheduled for an ablation on the of this month. This morning he woke up fairly dizzy, walk in the kitchen and had to sit down. He then got up and again became near syncopal and sat down in chair. According to his , at this time he loss consciousness for about a minute at which time 911 was called. He was brought to the ER, was noted to be in atrial flutter at a rate of 120 beats a minute. He denies any unilateral weakness, no slurred speech. No confusion. No vision loss. His laboratory data is unremarkable however are going to admit him to the [facility] for rate control, cardiology has been consulted. PAST MEDICAL HISTORY: 1. Paroxysmal atrial flutter currently on flecainide, metoprolol and Eliquis. 2. Remote history of DVT. 3. Varicose veins. SURGICAL HISTORY: He has had bilateral knee arthroplasty, bilateral cataract removal and vein stripping of the left leg. SOCIAL HISTORY: He denies any tobacco, alcohol or drug use. He is . at the bedside. He is retired from [employer], has 3 children. REVIEW OF SYSTEMS: Fourteen-point review of systems obtained and found to be negative with the exception of the HPI. ALLERGIES: No known drug allergies. HOME MEDICATIONS: Eliquis 5 mg b.i.d., Tambocor 50 mg b.i.d., Toprol-XL 25 mg daily. PHYSICAL EXAMINATION: VITAL SIGNS: Blood pressure is 118/97, heart rate 116, respiratory rate is 20, O2 saturation 97% on room air, temperature is 97.7 degrees. GENERAL: A well-developed, well-nourished male lying in hospital bed in no acute distress. NEUROLOGIC: The patient is awake, alert, oriented. Follows commands without focal deficits. HEENT: Head is atraumatic, normocephalic. Pupils are equal, round, reactive to light. Oral mucosa moist. Trachea midline. CHEST: Clear to auscultation bilaterally. CV: Irregular. S1, S2 is noted. Tachy. GI: Soft, nondistended, nontender. Bowel sounds positive. EXTREMITIES: Without edema, clubbing or cyanosis. Pulses palpable bilaterally. DIAGNOSTIC DATA: Chest x-ray, borderline to mildly prominent heart, no definite acute pathology by plain radiograph. EKG. Atrial flutter, rate around 120 beats a minute. WBC 7.69, hemoglobin 15.7, hematocrit 44.1, platelet count 161,000. INR 1.11. Sodium 143, potassium 4.0, chloride 106, CO2 22, anion gap 15, BUN 23, creatinine 1, glucose 118, calcium 9, magnesium 2.1, bilirubin 0.82, AST 22, ALT 16, alkaline phosphatase 54, CK negative, troponin negative, protein 6.9, albumin 4.2. ASSESSMENT/PLAN: 1. Syncope: Cardiac related secondary to his atrial flutter. There are no neuro deficits and the patient is awake, alert and oriented. We will monitor his neuro status on the floor and continue telemetry. 2. Atrial flutter with a rapid response: Will continue his home medications and consult cardiology, he is scheduled for ablation on the . We will also continue his Eliquis. 3. Deep vein thrombosis prophylaxis will be provided with his home Eliquis, we will also trend his enzymes. Dictated by SALMA Francis for Momo Lee MD cc: MD Momo Cox MD
--- NOTE | 2017-01-15 18:13 | CONSULTATION ---
DATE OF CONSULTATION: 01/15/2017 IMPRESSIONS: 1. Recurrent atrial flutter with brief syncope despite low dose flecainide and metoprolol. 2. Previous atrial flutter in September of this year after which patient underwent transesophageal echocardiography/cardioversion, restoring sinus rhythm. 3. Previous echocardiography which was transesophageal echocardiography demonstrated normal left ventricular function with mild mitral regurgitation. Aortic valve was normal. There is no evidence of left atrial appendage clot. RECOMMENDATIONS: 1. Continue anticoagulation with Eliquis. 2. Enhance rate control with additional metoprolol. 3. Increase flecainide to 100 mg po bid. 4. If atrial flutter is sustained overnight, pursue repeat cardioversion in the a.m. 5. Patient already scheduled for ablation of atrial flutter in January 27, 2017. HISTORY: This 76-year-old white male with a past history of previous atrial flutter in September of this year, presented to the emergency room by ambulance early this morning after an episode of brief syncope. He relates that he got up out of bed and went to the bathroom. He had a bowel movement. After getting up he started to feel lightheaded as he walked to the kitchen. He was not aware of any palpitations. His lightheadedness was rather significant and he sat down for a moment at the kitchen table. He got up again to go to the attached garage and started feeling more profoundly lightheaded. He sat down on a chair and his was present at this point and he suggested she call 911. She was in the process of calling 911 and she believes he passed out momentarily. He was brought to the hospital by ambulance and was noted to be in atrial flutter with increased ventricular rate response. He was given additional metoprolol in the emergency room and admitted for further workup. He has been on metoprolol and Eliquis since September. He has no history of angina. He has history of coronary angiography several years ago which was negative. He is generally active without any chest symptoms. PAST MEDICAL HISTORY: 1. Atrial flutter. 2. Negative for hypertension, negative for diabetes, negative for hypercholesterolemia. MEDICATIONS: Prior to admission include Eliquis, flecainide, and metoprolol. SOCIAL HISTORY: He is . He does not smoke or drink alcohol. FAMILY HISTORY: Positive for hypertension but negative for premature coronary disease. REVIEW OF SYSTEMS: Pulmonary: Negative. Gastrointestinal: Negative. Constitutional: Negative. Remainder of review of systems negative/noncontributory with 14 total systems reviewed. PHYSICAL EXAMINATION: General: This is a pleasant, older male in no distress. Vital Signs: As recorded are stable. Heart rate is 126 and irregular with ECG monitor showing atrial flutter with rapid ventricular rate. HEENT: Extraocular movements intact. Mucous membranes moist. Neck: Supple without jugular venous distention. There are no carotid bruits. Chest: Clear to auscultation. Cardiac Exam: Irregular rate and rhythm without appreciable murmur or gallop. Abdomen: Soft, nontender. Bowel sounds normal. Extremities: Without edema. Neurologic Exam: Reveals him to be alert and fully oriented. Speech is fluent. He moves all 4 extremities equally well. Skin: Warm and dry. Psychiatric: Reveals mood to be appropriate. DIAGNOSTIC STUDIES: ECG demonstrates atrial flutter with 2:1 AV conduction and a heart rate of 120 beats per minute. There is right axis deviation. cc: Steven Briceño MD MTDD
[2017-01-15] MEDS: ELIQUIS PO SCH (20:50)
[2017-01-15] MEDS: LOPRESSOR PO SCH (20:50)
[2017-01-15] MEDS: TAMBOCOR PO SCH (20:50)
[2017-01-15] MEDS ORDERED: TAMBOCOR PO SCH (21:00)
[2017-01-16 05:24] LABS: MANUAL DIFF NEEDED? NO
[2017-01-16 05:29] LABS: BASO% 0.4 % (0.0-0.8); EOS# 0.15 X1000 (0.0-0.7); EOS% 1.9 % (0.0-10.0); HEMATOCRIT 45.2 % (42.0-52.0); IMM GRAN# 0.03 X1000 (0.0-0.04); IMM GRAN% 0.4 % (0.0-0.5); LYMPH# 2.41 X1000 (1.2-3.4); LYMPH% 30.7 % (20.5-51.1); MCH 31.5 PG (27-31); MCHC 35.4 g/dL (33-37); MONO# 0.51 X1000 (0.11-0.59); MONO% 6.5 % (1.7-9.3); MPV 10.5 FL (7.4-10.4); NEUT% 60.1 % (42.2-75.2); PLT 141 X1000 (130-400); RBC 5.08 XMIL (4.7-6.1)
--- NOTE | 2017-01-16 05:40 | EKG Report ---
Test Performed on : 01/15/2017 07:42:18 AM Test Reason : Chest Pain Blood Pressure : / mmHG Vent. Rate : 120 BPM Atrial Rate : 240 BPM P-R Int : 000 ms QRS Dur : 108 ms QT Int : 308 ms P-R-T Axes : 269 116 -35 degrees QTc Int : 435 ms Atrial flutter. with 2:1 AV conduction. Right axis deviation Pulmonary disease pattern Cannot rule out Inferior infarct , age undetermined Abnormal ECG When compared with ECG of 10-OCT-2016 16:07, Significant changes have occurred Unconfirmed Result
[2017-01-16 06:00] LABS: AGAP 14; BUN 22 mg/dL (8-22); CALCIUM 8.9 mg/dL (8.8-10.2); CHLORIDE 106 mmol/L (98-107); COSMO 290; POTASSIUM 3.9 mmol/L (3.5-5.1); SODIUM 144 mmol/L (136-145); TCO2 24 mmol/L (25-35)
[2017-01-16] MEDS: TAMBOCOR PO SCH (08:05)
[2017-01-16] MEDS: ELIQUIS PO SCH (08:05)
[2017-01-16] MEDS: LOPRESSOR PO SCH (08:05)
--- NOTE | 2017-01-16 08:51 | PROGRESS NOTE ---
DATE: 01/16/2017 SUBJECTIVE: Patient continues asymptomatic from a cardiovascular standpoint. He remains in atrial flutter with a heart rate of 120 beats per minute. OBJECTIVE: Vital Signs: Blood pressure 129/86, heart rate 122-126 with ECG monitor showing atrial flutter, oxygen saturation 95% on room air. Chest: Clear to auscultation. Cardiac Exam: Reveals an irregular rate and rhythm without appreciable murmur or gallop. There is no evidence of peripheral edema. IMPRESSIONS: Persistent episode of recurrent atrial flutter despite increasing flecainide to 100 mg twice daily. RECOMMENDATIONS: Pursue elective cardioversion of atrial flutter. The patient ultimately is scheduled to have atrial flutter ablation in approximately 2 weeks. In the interim, patient will continue on flecainide 100 mg twice daily, metoprolol, and Eliquis. The rationale for pursuit of cardioversion discussed with the patient, along with the potential hazards. cc: Steven Briceño MD
[2017-01-16] MEDS ORDERED: TOPROL XL PO SCH (09:00)
[2017-01-16] MEDS ORDERED: DIPRIVAN 1% ONE (09:21)
[2017-01-16] MEDS ORDERED: NS 250 ML ONE (09:23)
[2017-01-16] MEDS ORDERED: CLAVE TWINSITE 32 IN 11959 ONE (09:23)
[2017-01-16] MEDS ORDERED: ANESTHESIA PB SET 88 IN 5742 ONE (09:23)
--- NOTE | 2017-01-16 09:37 | EKG Report ---
Test Performed on : 01/16/2017 08:37:18 AM Test Reason : rHYTHM CHECK Blood Pressure : / mmHG Vent. Rate : 126 BPM Atrial Rate : 252 BPM P-R Int : 000 ms QRS Dur : 102 ms QT Int : 300 ms P-R-T Axes : 224 113 -28 degrees QTc Int : 434 ms Atrial flutter. with 2:1 AV conduction. Right axis deviation Pulmonary disease pattern ST \T\ T wave abnormality, consider inferior ischemia Abnormal ECG When compared with ECG of 15-JAN-2017 07:42, (Unconfirmed) No significant change was found Confirmed by Zaid LOMBARDO, Kentrell Sweeney ([id number]) on 01/18/2017 2:54:42 PM
--- NOTE | 2017-01-16 10:45 | CARDIAC CATH REPORT ---
DATE: 01/16/2017 PROCEDURE PERFORMED: Direct current cardioversion. REQUESTING PHYSICIAN: Dr. Steven Briceño PRIMARY PHYSICIAN: Dr. Gabriele Xiong INDICATION: Recurrent atrial flutter, persistent. HISTORY: This is a 76-year-old male who is known to have persistent atrial flutter. He had received a BESSIE guided cardioversion back in 09/2016. He has been taking Eliquis since then. He had no thrombus back in 09/2016. He has been placed on flecainide and metoprolol. Cardioversion was recommended by Dr. Briceño. The benefits, risks and complications were discussed with him. He agreed. DESCRIPTION OF PROCEDURE: The patient was brought to the cardiac quality assurance qa lab analyst in the fasting state. He received intravenous propofol under the services of Dr. Wade. Once the patient was adequately anesthetized, he received a single synchronized countershock to the chest cage consistent with 75 jaffe per second. He did not convert after that initial shock. After a few moments, we delivered a second shock of 150 jaffe per second which resulted in conversion from atrial flutter into sinus rhythm. The patient woke up from the effects of anesthesia without any deficits. SUMMARY: This was a successful cardioversion from atrial flutter into normal sinus rhythm. RECOMMENDATIONS: The patient will continue on metoprolol and flecainide, and he is already scheduled to have an ablation procedure under Dr. Baldwin in the next few days. ADDENDUM: Prior to subjecting him to the effects of anesthesia, the pads were positioned in an anterior posterior location. cc: Morgan Davies MD
[2017-01-16] MEDS ORDERED: XYLOCAINE-MPF 2% ONE (12:02)
--- NOTE | 2017-01-16 13:33 | PROGRESS NOTE ---
DATE: 01/16/2017 SUBJECTIVE: Patient now status post cardioversion of atrial flutter restoring sinus rhythm. He continues without chest symptoms, relates feeling better. OBJECTIVE: Vital Signs: Stable. Cardiac: Reveals a regular rate and rhythm without appreciable murmur or gallop. ECG monitor shows sinus rhythm. IMPRESSION: Recurrent atrial flutter. Patient now in sinus rhythm following cardioversion. RECOMMENDATIONS: Reasonable to discharge the patient on current therapy, including Eliquis 5 mg p.o. b.i.d., metoprolol 50 mg p.o. b.i.d., and flecainide 100 mg p.o. b.i.d. He has followup atrial flutter ablation scheduled in approximately 2 weeks. cc: Steven Briceño MD
[2017-01-16 15:06] VITALS: BP 109/62
--- NOTE | 2017-01-16 21:26 | DISCHARGE SUMMARY ---
ADMISSION DATE: 01/15/2017 DISCHARGE DATE: 01/16/2017 DATE OF ADMISSION: 01/15/2017. DATE OF DISCHARGE: 01/16/2017. CONSULTATIONS: Dr. Steven Briceño with Cardiology. PERTINENT PROCEDURES: DCC cardioversion by Dr. Briceño that was successful from an atrial flutter into a normal sinus rhythm. DISCHARGE DIAGNOSES: 1. Recurrent atrial flutter status post DCC cardioversion to sinus rhythm. The patient has been cleared for discharge by Cardiology to continue on current therapy with Eliquis, metoprolol, flecainide and follow up with his atrial flutter ablation scheduled in approximately 2 weeks. 2. Syncope secondary to atrial flutter. No neuro deficit status post DCC cardioversion to sinus rhythm. 3. Atrial flutter with RVR. The patient will continue on medications. He is status post DCC cardioversion. He will need to follow up and continue for his ablation in [place]. HOSPITAL COURSE: Briefly, Mr. Lobo is a 76-year-old male with a history of paroxysmal atrial fibrillation flutter, 1st diagnosed 3 months ago. At that time, he came to the emergency department with complaints of palpitation, near syncope. He was found to be in atrial flutter. Was ultimately cardioverted by Cardiology. He had a very thorough workup at that time, which did not show any acute findings on his head CT, carotid ultrasound, or echocardiogram. He has since seen Dr. Xiong and Dr. Baldwin in his office and scheduled for an ablation on the of this month. On the morning of his admission, he woke up fairly dizzy. He walked to the kitchen. He had to sit down. He then got up and became near syncopal and sat down in the chair. According to his , at this time he loss consciousness for about a minute, which 911 was called. He was brought to the emergency department. Noted to be in atrial flutter at a rate of 120 beats per minute. He denied unilateral weakness. No slurred speech. No confusion. No vision loss. His laboratory data was unremarkable. However, he was admitted to [facility] for rate control with a cardiology consult. He was continued on his home medications as well as his Eliquis. They enhanced his rate control with an additional metoprolol. Increased his flecainide 200 mg p.o. b.i.d. He retained his atrial flutter overnight. They did a DCC cardioversion on 01/16/2017, where it was successful into sinus rhythm. Per Cardiology, they felt it was reasonable to discharge the patient on his current therapy, includin. Eliquis 5 mg p.o. b.i.d. 2. Metoprolol 50 mg p.o. b.i.d. 3. Flecainide 100 mg p.o. b.i.d. Follow up for his atrial flutter ablation scheduled on the with Dr. Baldwin. VITAL SIGNS AT TIME OF DISCHARGE: Temperature is 97.8 degrees, heart rate 59, respirations 16, blood pressure is 109/62, O2 is 96% on room air. DISCHARGE DIET: Healthy heart. DISCHARGE MEDICATIONS: 1. Eliquis 5 mg p.o. b.i.d. 2. Flecainide 100 mg p.o. b.i.d. 3. Lopressor 50 mg p.o. b.i.d. FOLLOWUP: The patient is being discharged home. He will follow up with Dr. Kermit Stover on January 23 at 11:30 a.m. as well as keep his scheduled appointment for his ablation with Dr. Baldwin in 2 weeks. The patient can return to the emergency department for any worsening of symptoms. DISCHARGE TIME: 30 minutes. This is SALMA Haynes, doing a discharge summary for Dr. Rodriguez. Dictated by SALMA Haynes for Momo Lee MD cc: MD Carlin Cooper MD,MPH Kermit Stover MD
== END 2017-01-16 15:30 | disposition home or self-care (01) ==
LOC: ED 07:35 → EDIPHOLD 12:11 → 3S 14:55
PROVIDERS: ATTEND Internal Medicine